=== PATIENT | male | born 1960 | race Caucasian/White ===

== ENCOUNTER 2016-07-16 16:55 | Emergency (ER) | payer OTHER ==
[~2016-07-16] VITALS: Ht 180.3 cm; Wt 91.7 kg
[2016-07-16 17:00] VITALS: TEMP 36.6; Ht 180.3 cm; Wt 91.7 kg
[2016-07-16] MEDS ORDERED: HYDROCODONE/ACETAMOPHEN 5/325MG TAB PO ONE (17:30)
--- NOTE | 2016-07-16 17:48 | EMERGENCY ROOM VISIT NOTE ---
ED Visit Note First contact with patient: 17:13 I have seen and examined this patient with Vaughn Spann and generally agree with the treatment plan as discussed. Allergies Coded Allergies: No Known Allergies (Unverified , 07/16/16) Vital Signs Date Time Temp Pulse Resp B/P Pulse Ox O2 Delivery O2 Flow Rate FiO2 07/16/16 17:00 36.6 58 16 114/70 98 Room Air Medications Administered Medications (Trade) Dose Ordered Sig/Rito Route Start Time Stop Time Status Last Admin Dose Admin Acetaminophen/ Hydrocodone Bitart ([place] 5/325 Tab) 1 tab ONE ONCE PO 07/16/16 17:30 07/16/16 17:32 DC 07/16/16 17:37 1 TAB Departure Information Referrals Sweta Montemayor D.OYoselin (PCP) Patient Instructions A Signature Page, My [facility]
[2016-07-16] MEDS ORDERED: FLUO10CA48 PO (17:57)
[2016-07-16] MEDS ORDERED: PROP10TA7 PO (17:57)
[2016-07-16] MEDS ORDERED: BUSP15TA70 PO (17:57)
[2016-07-16] MEDS ORDERED: LISI-729 PO (17:57)
[2016-07-16] MEDS ORDERED: HYDR-5688 PO (18:08)
[2016-07-16] MEDS ORDERED: NORCO 5/325MG HOME PACK PO ONE (18:15)
--- NOTE | 2016-07-16 19:13 | DIAGNOSTIC IMAGING REPORT ---
LEFT FOOT 3 VIEWS CLINICAL HISTORY: Left foot pain. FINDINGS: 3 views of left foot are obtained. No prior studies are available for comparison at the time of dictation. The skeletal structures are osteopenic. No fracture is seen in the foot. Mild degenerative spurring is noted along the dorsal aspect of the tarsal bones. There is posttraumatic deformity seen in the ankle. A buttress plate is noted in the distal fibula, and a pin is present in the distal tibia. Soft tissue edema is present around the ankle. There is a plantar calcaneal enthesophyte. IMPRESSION: 1. Osteopenia, heel spur, and minimal degenerative change as above. No acute bony abnormality is seen in the left foot. 2. Postoperative and posttraumatic change is noted in the left ankle with overlying soft tissue edema. Electronically signed by: Eliseo Lee M.D. 07/16/2016 7:11 PM
[2016-07-16 20:05] VITALS: BP 120/75; PULSE 60; O2SAT 94
--- NOTE | 2016-07-18 00:48 | EMERGENCY ROOM VISIT NOTE ---
ED Visit Note First contact with patient: 17:13 Chief Complaint: Left foot pain. History of Present Illness: Mr. Lai is a 56-year-old white male who ambulates into the ED complaining of severe left foot pain. Historically patient reports he has had previous back surgery with a left-sided radicular component and he has also had left ankle surgery. He reports since the surgery he has been seen by pain management and diagnosed with regional sympathetic dystrophy. Patient reports approximately one week ago he noted some mild swelling over the top of his foot and in his left ankle. This is subsequently resolved. Patient then reports a proximally 36 hours ago he developed a severe burning sensation to the top of his left foot consistent with his previous RSD symptoms. He reports since that time the pain has been constant. He rates his discomfort 10/ 10. The pain is nonradiating. The pain slightly worsens when he dorsiflexes foot. Has minimal relief of his discomfort when he elevates the foot. He has used [id number]-[id number] medications and ice without relief of his discomfort. He denies any associated symptoms including recent direct injury or repetitive injuries, lower leg pain, lower leg swelling, fevers, chills, skin eruptions, skin color changes, foot/ankle swelling and foot/ankle numbness/weakness. Review of Systems: As noted above in history of present illness. 5 body systems were reviewed and found to be negative as noted above. Past Medical History: As previously noted, hypertension. Current Medications: Lisinopril, BuSpar, Prozac, Inderal. Allergies to Medications: Patient denies. Social History: Patient is not employed; he reports she's on disability; he admits to tobacco and alcohol use. Physical Examination: Vital Signs: Date Time Temp Pulse Resp B/P Pulse Ox O2 Delivery O2 Flow Rate FiO2 07/16/16 20:05 60 16 120/75 94 07/16/16 17:00 36.6 58 16 114/70 98 Room Air GENERAL: 56-year-old male in moderate distress due to pain, nontoxic-appearing, afebrile and hemodynamically stable. NEUROLOGICAL: Awake, alert and oriented to person, place and time. Answering questions appropriately and following commands. Normal gait. Good hand eye coordination. No focal motor sensory deficits. SKIN: Warm, dry and pink. No soft tissue eruptions or trauma noted. BACK: No tenderness over the lumbar bony spine or throughout the paraspinous musculature. No muscle spasm. Full range of motion of the lumbar spine. Negative straight leg raise test. LEFT LOWER EXTREMITY: No gross bony deformity. No tenderness in the hip or knee. No calf tenderness or cords. The top of the foot has a shiny appearance and has minimal swelling. There is no erythema and the skin does is not warm or then the rest of the extremity. No gross bony deformities were noted in the foot. There is mild tenderness over the dorsal aspect of the foot. Throughout the foot he was able to distinguish light sensations. Capillary refill was brisk. Pulses were intact. 4/5 muscle strength in plantar flexion and dorsiflexion of the ankle and flexion and extension of all toes. ED Course: Patient is assessed as noted above. Patient was given one [place] 5/325 mg tablet by mouth for pain. Left Foot X-Rays: Were read by myself and shows no acute fractures or dislocations. Radiologist notes osteopenia, heel spur and degenerative changes as well as postoperative and posttraumatic changes to the ankle. Patient was offered crutches and refused. Patient was educated about tonight's findings and instructed on his treatment plan; he verbalized understanding and agreement with this plan. Clinical Impression: Left foot pain. Probable exacerbation of RSD. Decision-Making: Initially my differential diagnosis I considered exacerbation of RSD, cellulitis, DVT, tendon or ligament injury, bony destructive lesions in other causes. Disposition: Patient discharged home accompanied by male friend; prior to departure he was reassessed and subjectively reported he was feeling better and rated his discomfort 3/10. Plan: Comfort measures were discussed with the patient including rest, elevation and a sliding pain medication scale of ibuprofen, acetaminophen and [place]; he was given standard precautions about narcotic use. Patient was encouraged to keep his upcoming appointment with his PCP; he was encouraged to discuss this ED visit and possible referral to pain specialist. Patient was encouraged return ED for worsening pain, worsening swelling, foot weakness/numbness/tingling or any new/concerning symptoms.
== END 2016-07-16 20:00 | disposition home or self-care (01) ==
LOC: C.EDB 16:56 → C.EDD 20:00
DX: M79.672 Pain in left foot (principal); G90.522 Complex regional pain syndrome I of left lower limb; I10 Essential (primary) hypertension; F17.200 Nicotine dependence, unspecified, uncomplicated; Z72.89 Other problems related to lifestyle; Z98.890 Other specified postprocedural states

== ENCOUNTER 2016-08-25 09:10 | Emergency (ER) | payer OTHER ==
[~2016-08-25] VITALS: Ht 180.3 cm; Wt 86.5 kg
[~2016-08-25 09:10] MED LIST: BUSP15TA70 PO; FLUO10CA48 PO; HYDR-5688 PO; LISI-729 PO; PROP10TA7 PO
[2016-08-25 09:13] VITALS: TEMP 36.9; Ht 180.3 cm; Wt 86.5 kg
[2016-08-25] MEDS ORDERED: OXYCODONE HCL IR 5 MG TAB (IMMEDIATE RELEASE) PO STA (10:20)
[2016-08-25] MEDS ORDERED: OXYC1TAB3 PO (10:23)
--- NOTE | 2016-08-25 10:24 | EMERGENCY ROOM VISIT NOTE ---
History First contact with patient: 10:05 Chief Complaint: FOOT PAIN Stated Complaint: LEFT FOOT PAIN History of Present Illness The patient is a 56 year old male who presents to the Emergency Room with complaints of left foot pain. The patient has a history of reflex and but that it dystrophy. The patient states that he has any exacerbation 1-2 times per year. He states it is usually managed with pain medication. The patient has seen [facility] and his family doctor for this in the past. He denies any falls or injuries. He denies any fevers. He denies any redness, warmth, calf pain, calf tenderness. He states the symptoms are very typical of RSD. He rates his discomfort an 8/10. Review of Systems A 10 system review of systems was completed with positives and pertinent negatives listed in the HPI. Past Medical/Surgical History Medical Problems: (1) Reflex sympathetic dystrophy Social History Smoking Status: Never Smoker Housing Status: lives with family Current/Historical Medications Scheduled PRN Oxycodone Ir (Roxicodone Ir), 1-2 TAB PO Q4H PRN for Pain Allergies Coded Allergies: No Known Allergies (Unverified , 08/25/16) Physical Exam Vital Signs Date Time Temp Pulse Resp B/P Pulse Ox O2 Delivery O2 Flow Rate FiO2 08/25/16 10:41 82 16 152/93 98 08/25/16 09:13 36.9 91 18 157/92 97 Room Air Physical Exam VITALS: Vitals are noted on the nurse's note and reviewed by myself. Vital signs stable. The patient is afebrile. GENERAL: This is a 56-year-old male, in no acute distress, nondiaphoretic, well- developed well-nourished. SKIN: The skin was without rashes, erythema, edema, or bruising. There is no tenting of the skin. Capillary reflex less than 2 seconds. HEAD: Normocephalic atraumatic. EARS: The external ears are normal in appearance. EYES: Pupils equal round and reactive to light and accommodation. Conjunctivae without injection, sclerae without icterus. Extraocular movements intact. NOSE: Patent, turbinates without inflammation or discharge. MOUTH: Mucous membranes moist. Tonsils are not enlarged. Pharynx without erythema or exudate. Uvula midline. Airway patent. Tongue does not deviate. NECK: Supple without nuchal rigidity No JVD. HEART: Regular rate and rhythm without murmurs gallops or rubs. LUNGS: Clear to auscultation bilaterally without wheezes, rales or rhonchi. No retractions or accessory muscle use. MUSCULOSKELETAL: No muscle atrophy, erythema, or edema noted. Full range of motion without joint tenderness in all extremities. No tenderness to palpation. Normal gait. Strength 5/5 throughout. NEURO: Patient was alert and oriented to person place and time. Normal sensation to light and sharp touch. No focal neurological deficits. Medical Decision & Procedures Medications Administered Medications (Trade) Dose Ordered Sig/Rito Route Start Time Stop Time Status Last Admin Dose Admin Oxycodone HCl (Roxicodone Immediate Rel Tab) 5 mg NOW STAT PO 08/25/16 10:20 08/25/16 10:21 DC 08/25/16 10:24 5 MG ED Course The patient was seen and examined. Previous visits were reviewed. The patient has a history of reflex sympathetic dystrophy. The patient states that this feels very typical of his biannual exacerbations. He has not had any falls or injuries. He has not had any fevers. There is no erythema, warmth, edema to the leg or ankle. There is no calf tenderness, swelling or palpable cord. The patient has not had any neurologic deficit on exam or by history. The patient states that he is usually given pain medication and his symptoms improve. He was given 1 OxyIR in the emergency department as well as a small prescription. He should follow-up with his family doctor for further evaluation and management. He should return with any worsening symptoms. Medical Decision The differential diagnosis includes DVT, cellulitis, sprain, strain, lumbar radiculopathy, among others [place] Drug Monitoring Program Search Results: patient reviewed within database, no issues identified Impression Primary Impression: Foot pain, left Departure Information Dispostion Home / Self-Care Condition GOOD Prescriptions Oxycodone Ir (Roxicodone Ir) 5 Mg Tab 1-2 TAB PO Q4H Y for Pain, #25 TAB For Initial Treatment Prov: Moon Simspon PA-C 08/25/16 Referrals Sweta Montemayor D.O. (PCP) Patient Instructions Dystrophy Reflex Sympathetic, My [facility] Additional Instructions Oxy IR 1-2 tablets every 4-6 hrs as needed for worse pain. No driving or alcohol use with Oxy IR. Contact your family doctor to schedule a follow-up appointment for further evaluation and management Return with any worsening symptoms
[2016-08-25 10:41] VITALS: BP 152/93; PULSE 82; O2SAT 98
== END 2016-08-25 10:42 | disposition home or self-care (01) ==
LOC: C.EDB 09:11 → C.EDA 10:42
DX: M79.672 Pain in left foot (principal)

== ENCOUNTER 2017-01-08 17:36 | Emergency (ER) | payer OTHER ==
[~2017-01-08] VITALS: Ht 177.8 cm; Wt 73.1 kg
[~2017-01-08 17:36] MED LIST changes: -BUSP15TA70 PO; -FLUO10CA48 PO; -HYDR-5688 PO; -LISI-729 PO; +OXYC1TAB3 PO; -PROP10TA7 PO
[2017-01-08 17:53] VITALS: BP 141/92; TEMP 36.6; Ht 177.8 cm; Wt 73.1 kg
[2017-01-08] MEDS ORDERED: OXYC1TAB3 PO ×2 (18:17→18:23)
--- NOTE | 2017-01-08 18:21 | EMERGENCY ROOM VISIT NOTE ---
History First contact with patient: 17:57 Chief Complaint: ANKLE PAIN Stated Complaint: LEFT FOOT History of Present Illness The patient is a 56 year old male who presents to the Emergency Room with complaints of left ankle pain. The patient states that he has a history of reflux sympathetic dystrophy secondary to a surgery of the ankle in 2000. He occasionally has flareups of pain in the ankle. He states these flareups happened 2-3 times each year. He reports pain and swelling in the left ankle. He rates his discomfort a 10/10. He states this feels similar to previous episodes of RSD flareups. He states there is increased pain with weightbearing on the ankle. He states the flareups typically last 3 days. His symptoms started today. He denies any numbness, weakness, redness, warmth or fevers. Review of Systems A complete 10 point review of systems was reviewed with the patient with pertinent positives and negatives as per history of present illness. All else were negative. Past Medical/Surgical History Medical Problems: (1) Reflex sympathetic dystrophy Social History Smoking Status: Current Every Day Smoker Housing Status: lives with family Current/Historical Medications Scheduled PRN Oxycodone Ir (Roxicodone Ir), 1 TAB PO Q4H PRN for Pain Allergies Coded Allergies: No Known Allergies (Unverified , 08/25/16) Physical Exam Vital Signs Date Time Temp Pulse Resp B/P (MAP) Pulse Ox O2 Delivery O2 Flow Rate FiO2 01/08/17 18:31 88 18 97 01/08/17 17:53 36.6 97 16 141/92 95 Room Air Physical Exam VITALS: Vitals are noted on the nurse's note and reviewed by myself. Vital signs stable. GENERAL: This is a 56-year-old male, in no acute distress, nondiaphoretic, well- developed well-nourished. SKIN: Skin changes consistent with peripheral vascular disease to bilateral lower extremities. MUSCULOSKELETAL: The left ankle is mildly edematous. There is no erythema, warmth or palpable cord. There is no tenderness to palpation of the ankle. There is no tenderness to the calf. Full range of motion of the left ankle and all toes. NEURO: Patient was alert and oriented to person place and time. Normal sensation to light and sharp touch. Medical Decision & Procedures Medical Decision Differential diagnosis includes DVT, superficial thrombosis, cellulitis, septic joint, RSD flareup, gout, rheumatoid arthritis, among others. The patient was evaluated as above. He presents complaining of left ankle pain consistent with previous RSD flareups. There is nothing on physical exam to suggest infection or DVT. The patient states his symptoms are exactly like previous RSD flareups. The patient will be given a short course of oxycodone for pain. He was instructed to follow-up with his primary care provider for a recheck. He verbalized understanding of my assessment and treatment plan and was discharged home in good condition. Blood Pressure Screening: Patient was found to have a slightly elevated blood pressure due to circumstances. I do not believe that the patient requires hypertension monitoring. Medication reconciliation: I attest that I have personally reviewed the patient 's current medication list. [place] Drug Monitoring Program Search Results: patient reviewed within database, no issues identified Impression Primary Impression: Left ankle pain Additional Impression: Reflex sympathetic dystrophy Departure Information Dispostion Home / Self-Care Condition GOOD Prescriptions Oxycodone Ir (Roxicodone Ir) 5 Mg Tab 1 TAB PO Q4H Y for Pain, #15 TAB For Initial Treatment Prov: Senait De Jesus .ERROL 01/08/17 Referrals Sweta Montemayor D.O. (PCP) Forms HOME CARE DOCUMENTATION FORM, IMPORTANT VISIT INFORMATION Patient Instructions My [facility] Additional Instructions You have been prescribed OxyIR to be used for pain control. Take 1-2 tablets every 4-6 hours as needed for pain. This is a narcotic medication. You cannot drive or consume alcohol while on this medicine. This medicine should only be used for pain that cannot be controlled with [id number]-sgarbel pain medicines. For pain control, you can use the following [id number] medicines (if >12 yo): - Regular strength (325mg/tab) Tylenol (acetaminophen) 2 tabs every 4-6 hours as needed. Do not exceed 12 tablets in a 24 hour period. Avoid taking more than 4 grams (4000 mg) of Tylenol per day. This includes any other sources of acetaminophen you may take on a regular basis. - Regular strength (200 mg/tab) Advil (ibuprofen) 1-2 tabs every 4-6 hours as needed. Do not exceed a dose of 3200 mg per day. Follow-up with your primary care provider for further treatment of your ankle pain. Return to the emergency department for any worsening or new/concerning symptoms. Problem Qualifiers Primary Impression: Left ankle pain
[2017-01-08 18:31] VITALS: PULSE 88; O2SAT 97
== END 2017-01-08 18:31 | disposition home or self-care (01) ==
LOC: C.EDB 17:37 → C.EDD 18:31
DX: M25.572 Pain in left ankle and joints of left foot (principal); G90.522 Complex regional pain syndrome I of left lower limb; F17.200 Nicotine dependence, unspecified, uncomplicated

== ENCOUNTER 2018-02-12 20:02 | Emergency (ER) | payer OTHER ==
[~2018-02-12] VITALS: Ht 180.3 cm; Wt 102.3 kg
[2018-02-12 20:07] VITALS: TEMP 36.8; Ht 180.3 cm; Wt 102.3 kg
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
[2018-02-12] MEDS ORDERED: AMOX875T PO (21:57)
[2018-02-12] MEDS ORDERED: AMOXICILLIN/CLAVULANATE TAB 875 MG TAB PO ONE (22:00)
[2018-02-12 22:06] VITALS: BP 143/93; PULSE 63; O2SAT 97
== END 2018-02-12 22:06 | disposition home or self-care (01) ==
LOC: C.EDB 20:04 → C.EDC 22:06
DX: S02.40FA Zygomatic fracture, left side, initial encounter for closed fracture (principal); H11.32 Conjunctival hemorrhage, left eye; Y04.0XXA Assault by unarmed brawl or fight, initial encounter